=== PATIENT | male | born 1980 | race Caucasian/White ===

== ENCOUNTER 2018-03-21 10:54 | Emergency (ER) | payer OTHER ==
[2018-03-21 10:55] VITALS: BMI 40.3
[2018-03-21 11:02] VITALS: BP 145/94; PULSE 96; RESP 18; TEMP 98.6; O2SAT 97
[2018-03-21] MEDS ORDERED: Lidocaine 5% Patch TD STA (11:28)
[2018-03-21] MEDS ORDERED: Lidocaine 5% Patch TD ONE (11:41)
--- NOTE | 2018-03-21 11:43 | C.PDOC ---
History Of Present Illness 38 year old male presents to the ER with a complaint of left lower back pain that began today at work. Patient states he sat down and stretched when he felt a pinch to the left lower back area. He notes the pain worsens with bending over. Patient reports he has a history of lower back pain and states this feels similar to his previous pain. Denies Hx of herniated discs, weakness, numbness, incontinence, dysuria, or hematuria. Time Seen by Provider: 03/21/18 11:09 Chief Complaint (Nursing): Back Pain History Per: Patient History/Exam Limitations: no limitations Onset/Duration Of Symptoms: Hrs Current Symptoms Are (Timing): Still Present Quality Of Discomfort: Unable To Describe Previous Symptoms: Back Pain Associated Symptoms: None Exacerbating Factor(s): Other (Bending over) Recent travel outside of the [place]: No Past Medical History Reviewed: Historical Data, Nursing Documentation, Vital Signs Vital Signs: Last Vital Signs Temp 98.6 F 03/21/18 10:57 Pulse 96 H 03/21/18 10:57 Resp 18 03/21/18 10:57 BP 145/94 H 03/21/18 10:57 Pulse Ox 97 03/21/18 10:57 - Medical History PMH: Fractures Denies: Chronic Kidney Disease Family History: States: Unknown Family Hx - Social History Hx Alcohol Use: Yes Hx Substance Use: No - Immunization History Hx Tetanus Toxoid Vaccination: No Hx Influenza Vaccination: Yes (Mar 2017) Hx Pneumococcal Vaccination: No Review Of Systems Gastrointestinal: Negative for: Abdominal Pain Genitourinary: Negative for: Dysuria, Incontinence, Hematuria Musculoskeletal: Positive for: Back Pain Neurological: Negative for: Weakness, Numbness Physical Exam - Physical Exam Appears: Non-toxic Skin: Normal Color, Warm, Dry, No Rash Head: Atraumatic, Normacephalic Eye(s): bilateral: Normal Inspection Gastrointestinal/Abdominal: Soft, No Tenderness Back: No CVA Tenderness, No Vertebral Tenderness, No Paraspinal Tenderness, No Other (Swelling) Extremity: Normal ROM (x4) Neurological/Psych: Oriented x3, Normal Speech, Normal Motor, Normal Sensation Gait: Steady ED Course And Treatment O2 Sat by Pulse Oximetry: 97 (Room air) Pulse Ox Interpretation: Normal Medical Decision Making Medical Decision Making: Flexeril and toradol administered. Lidoderm patch applied. Patient is resting comfortably in the ER in no acute distress, ambulatory with a steady gait, vitals are stable, will discharge home with Rx and instructions to follow up with PMD. Disposition Counseled Patient/Family Regarding: Need For Followup, Rx Given - Disposition Referrals: Veto Kennedy MD [Staff Provider] - Disposition: HOME/ ROUTINE Disposition Time: 11:51 Condition: STABLE Additional Instructions: You can apply heat to area Take Tylenol 500mg for any pain Take Ibuprofen as needed for pain every 6-8 hours, with food to not upset stomach Take Flexeril every 8 hours as needed for muscular pain and spasm, caution may cause drowsiness Prescriptions: Cyclobenzaprine [Cyclobenzaprine HCl] 10 mg PO TID #30 tab Ibuprofen [Motrin] 600 mg PO Q8 #30 tab Instructions: Low Back Pain (DC) Forms: [facility] (Lao), Work Excuse - POA Present On Arrival: None - Clinical Impression Clinical Impression: Low back strain, Work related injury - PA / [employer] / Resident Statement MD/DO has reviewed & agrees with the documentation as recorded. - Scribe Statement The provider has reviewed the documentation as recorded by the Scribe Jose Enrique Delgado All medical record entries made by the Adrianaibtravis were at my direction and personally dictated by me. I have reviewed the chart and agree that the record accurately reflects my personal performance of the history, physical exam, medical decision making, and the department course for this patient. I have also personally directed, reviewed, and agree with the discharge instructions and disposition.
== END 2018-03-21 12:25 | disposition home or self-care (01) ==
LOC: C.ER 10:54
DX: S39.012A Strain of muscle, fascia and tendon of lower back, initial encounter (principal); X50.9XXA Other and unspecified overexertion or strenuous movements or postures, initial encounter; Y92.89 Other specified places as the place of occurrence of the external cause; Y99.0 Civilian activity done for income or pay
CPT/HCPCS: 96372; 99283; J1885